=== PATIENT | female | born 1965 | race Caucasian/White ===

== ENCOUNTER 2017-10-30 20:32 | Emergency (ER) | payer BC ==
[~2017-10-30 20:32] MED LIST: HYDR-4309 PO; IBUP-56 PO; KET10 PO; NITR-105 PO; SULF-198 PO; ZOLP-350 PO
[2017-10-30 20:40] VITALS: BP 144/84
--- NOTE | 2017-10-30 20:40 | ER Report ---
History and Physical Time Seen By MD: 20:40 HPI/ROS CHIEF COMPLAINT: Custodial clearance HISTORY OF PRESENT ILLNESS: 51-year-old female patient presents to the emergency room for Custodial clearance. Patient states that she doesn't want to be here. Patient denies having any pain, shortness of breath. Patient refuses to answer any other questions. Patient states "Are you a fucking psychiatrist" and refuses to talk. 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 Patient has a surgical history of hysterectomy, tubal ligation, cyst removed from breasts. Reviewed Nurses Notes: Yes Hx Smoking: No Hx Substance Use Disorder: No Hx Alcohol Use: Yes Constitutional Vital Sign - Last 24 Hours 10/30/17 20:40 Temp 98.4 Pulse 111 Resp 16 B/P (MAP) 144/84 Pulse Ox 97 O2 Delivery Room Air Physical Exam Patient refuses a physical exam stating "Are you a fucking psychiatrist?" "Fucking get off". I did inform patient that is her right to refuse a physical exam. We will go ahead and discharge her to the residential center at this time. Medical Decision Making ED Course/Re-evaluation ED Course Patient was admitted on exam room, history and physical were attempted. Patient would not allow me to do a physical exam and would not answer any questions. Patient states that she would just like to go to prison. We'll go ahead and discharge her to prison at this time. Decision to Disposition Date: Oct 30, 2017 Decision to Disposition Time: 20:45 Depart Departure Latest Vital Signs Vital Signs Date Time Temp Pulse Resp B/P (MAP) Pulse Ox O2 Delivery O2 Flow Rate FiO2 10/30/17 20:40 98.4 111 16 144/84 97 Room Air Impression: Primary Impression: Medical clearance for incarceration Additional Impression: Alcohol intoxication Condition: Improved Disposition: [facility] TO CARE HOME/CORRECTIONAL F Referrals: RENATO CARNEY PA-C (PCP) Patient Instructions: Alcohol Intoxication (ED) Additional Instructions: Follow up with the medical staff at the residential center with any concerns. Increase fluid intake. Return to the ER with any emergent conditions. Problem Qualifiers Additional Impression: Alcohol intoxication Complication of substance-induced condition: uncomplicated Qualified Codes: F10.920 - Alcohol use, unspecified with intoxication, uncomplicated CLARISSA RANDHAWA Oct 30, 2017 20:40
== END 2017-10-30 20:50 ==
LOC: ER 20:47
DX: F10.920 Alcohol use, unspecified with intoxication, uncomplicated (principal)
CPT/HCPCS: 99281